=== PATIENT | male | born 1990 | race Caucasian/White ===

== ENCOUNTER 2017-09-24 20:58 | Emergency (ER) | payer OTHER ==
[2017-09-24 21:18] VITALS: BP 157/79
[2017-09-24] MEDS ORDERED: BUFFERED LIDOCAINE 10 ML SYRINGE ONE (21:40)
--- NOTE | 2017-09-24 21:59 | ED Physician Documentation ---
PD HPI UPPER EXT INJURY - Stated complaint Stated Complaint: LT WRIST INJ - Chief complaint Chief Complaint: Laceration - History obtained from History obtained from: Patient - History of Present Illness Location: Left (Right-handed gentleman who is up-to-date on tetanus was at work tonight, active duty in the [employer], he cut himself on a sharp edge on the left wrist.) Review of Systems Constitutional: reports: Reviewed and negative Cardiac: reports: Reviewed and negative Respiratory: reports: Reviewed and negative PD PAST MEDICAL HISTORY - Past Medical History Past Medical History: No - Past Surgical History Past Surgical History: No - Present Medications Home Medications: Ambulatory Orders Medication Instructions Recorded Confirmed No Known Home Medications [No 09/24/17 09/24/17 Known Home Medications] - Allergies Allergies/Adverse Reactions: Allergies Allergy/AdvReac Type Severity Reaction Status Date / Time No Known Drug Allergies Allergy Verified 09/24/17 21:16 - Social History Does the pt smoke?: No Smoking Status: Never smoker Does the pt drink ETOH?: Yes ETOH Use: Beer Does the pt have substance abuse?: No - Immunizations Immunizations are current?: Yes - POLST Patient has POLST: No PD ED PE NORMAL - Vitals Vital signs reviewed: Yes - General General: Alert and oriented X 3, No acute distress - Extremities Extremities: Other (On the anterior surface of left wrist on the ulnar side there is 1 cm laceration is subcutaneous fat. Flexor tendon strength of all the digits and sensation is intact.) - Neuro Neuro: Alert and oriented X 3, Normal speech Results - Vitals Vitals: Vital Signs - 24 hr 09/24/17 21:16 Temperature 36.4 C L Heart Rate 66 Respiratory 15 Rate Blood Pressure 157/79 H O2 Saturation 99 Oxygen O2 Source Room air Procedures - Laceration (location) Left wrist Length in cm: 1 Wound type: Linear, Superficial, Into subcut fat Anesthesia: Lidocaine 1% Wound Preparation: Irrigated copiously NS Skin layer closure: Nylon, Interrupted, Size #-0 - enter number (4-0), Sutures - enter # (3) Other: Patient tolerated well, No complications, Neurovascular intact, Tetanus UTD Complexity: Simple PD MEDICAL DECISION MAKING - Sepsis Event Vital Signs: Vital Signs - 24 hr 09/24/17 21:16 Temperature 36.4 C L Heart Rate 66 Respiratory 15 Rate Blood Pressure 157/79 H O2 Saturation 99 Oxygen O2 Source Room air Departure - Departure Disposition: Home, Self Care Clinical Impression: Laceration Condition: Good Record reviewed to determine appropriate education?: Yes Instructions: ED Laceration All Comments: Come back for any signs of infection which would include: Redness, swelling, drainage, increased pain, or fevers. Follow-up with your physician in 14 days for suture removal. Your blood pressure was elevated today on check into the emergency department. This does not mean that you have hypertension, it is a common phenomenon to come to the emergency department and have elevated blood pressure. I recommend that you see your primary care physician within the week to have it rechecked when you are feeling better.
[2017-09-24] MEDS ORDERED: BACITRACIN OINT TOP ONE (22:02)
== END 2017-09-24 22:05 | disposition home or self-care (01) ==
LOC: ED 20:58
DX: S61.512A Laceration without foreign body of left wrist, initial encounter (principal); W26.8XXA Contact with other sharp object(s), not elsewhere classified, initial encounter
CPT/HCPCS: 12001; 99282; 99283; A9270